=== PATIENT | male | born 1960 | race Caucasian/White ===

== ENCOUNTER 2017-07-01 19:31 | Emergency (ER) | payer MEDICARE ==
[~2017-07-01] VITALS: Ht 172.7 cm; Wt 81.6 kg
[~2017-07-01 19:31] MED LIST: ASPIR 8181 MG PO; CELEXA20 MG PO; COREG6.25 MG PO; DICYCLOMINE HCL20 MG PO; GEMFIBROZIL600 MG PO; GLIPIZIDE10 MG PO; GLIPIZIDE2.5 MG PO; JENTADUETO 2.51 EACH PO; LISINOPRIL HCTZ1 TA1 PO; LISINOPRIL10 MG PO; LOPID600 MG PO; MEDROL DOSEPAK4 MG PO; METFORMIN1000 MG PO; Motrin,Rufen800 MG PO; NAPROSYN500 MG PO; SIMVASTATIN40 MG PO; ULTRAM50 MG PO; VIBRAMYCIN100 MG PO; VICODIN 5/500 505 MG PO; VICODIN ES 7501 TAB PO; VOLTAREN75 MG PO
[2017-07-01] MEDS ORDERED: METFORMIN1000 MG PO (19:52)
[2017-07-01] MEDS ORDERED: CEPHALEXIN500 M1 PO (20:13)
== END 2017-07-01 20:51 | disposition home or self-care (01) ==
LOC: ED 19:31
DX: S91.331A Puncture wound without foreign body, right foot, initial encounter (principal); F17.200 Nicotine dependence, unspecified, uncomplicated; Z98.890 Other specified postprocedural states; Z90.89 Acquired absence of other organs; Z79.82 Long term (current) use of aspirin; Z79.899 Other long term (current) drug therapy; Z95.5 Presence of coronary angioplasty implant and graft; Z88.6 Allergy status to analgesic agent; Z88.5 Allergy status to narcotic agent; W22.8XXA Striking against or struck by other objects, initial encounter; Y93.01 Activity, walking, marching and hiking; Y92.89 Other specified places as the place of occurrence of the external cause; Y99.9 Unspecified external cause status

== ENCOUNTER 2017-07-27 16:54 | Inpatient (IN) | payer MEDICARE ==
[~2017-07-27] VITALS: Ht 172.7 cm; Wt 82.4 kg
--- NOTE | ~2017-07-27 | ST ---
[place], [place] EXERCISE STRESS TEST REPORT NAME: RODNEY STERN UNIT #: [id number] ROOM: 508 DOCTOR: MARYANN MENJIVAR MD BIRTHDATE: [birth year] DOS: 07/28/2017 REFERRING PHYSICIAN: Dr. Webb. INDICATION: Precordial chest pain. The patient underwent standard protocol Lexiscan stress EKG. The patient's baseline EKG showed sinus bradycardia with nonspecific ST-T wave changes. Baseline heart rate 52 with blood pressure 136/72. The patient's peak heart rate was 121 with blood pressure 152/58. The patient had no chest pain, no ischemic changes and no arrhythmias noted. SUMMARY OF FINDINGS: Unremarkable Lexiscan stress EKG. Please see separate dictation for perfusion scan results. MARYANN MENJIVAR MD CM:STRESS:EXERCISE STRESS TEST REPORT [id number] MARYANN MENJIVAR MD
[~2017-07-27 16:54] MED LIST changes: +CEPHALEXIN500 M1 PO
[2017-07-27 17:06] VITALS: BP 177/89
[2017-07-27 17:17] LABS: BASO # 0.1 10*3/uL (0.0-0.1); BASO % 0.5 % (0.0-1.0); EOS # 0.2 10*3/uL (0.0-0.4); HEMATOCRIT 42.1 % (42.0-52.0); HEMOGLOBIN 14.7 g/dl (14.0-18.0); LYMPH # 3.7 10*3/uL (1.3-4.4); LYMPH % 39.2 % (27.0-41.0); MEAN CELL VOLUME 89.4 fl (80.0-94.0); MEAN CORPUSCULAR HGB 31.2 pg (27.0-31.0); MEAN CORPUSCULAR HGB CONC 34.9 g/dl (33.0-37.0); MEAN PLATELET VOLUME 9.3 fl (9.6-12.3); MONO # 0.7 10*3/uL (0.1-1.0); MONO % 7.8 % (3.0-9.0); NEUT # 4.7 10*3/uL (2.3-7.9); NEUT % 50.1 % (47.0-73.0); PLATELET COUNT AUTOMATED 172 10*3/uL (130-400); RED BLOOD COUNT 4.71 10*6/uL (4.50-5.90); RED CELL DISTRI WIDTH 11.9 % (0-14.5); WHITE BLOOD COUNT 9.3 10*3/uL (4.8-10.8)
[2017-07-27 17:25] LABS: INTERNATIONAL NORM RATIO 0.9 (2.0-3.5)
[2017-07-27 17:33] LABS: ALBUMIN 4.1 gm/dl (3.1-4.5); ALKALINE PHOSPHATASE 56 U/L (45-117); BUN 18 mg/dl (7-24); CHLORIDE 95 mmol/L (98-107); CKMB 4.2 ng/ml (0.5-3.6); CPK 281 U/L (39-308); CREATININE 0.94 mg/dL (0.70-1.30); LIPASE 180 U/L (73-393); MAGNESIUM 1.9 mg/dL (1.5-2.1); POTASSIUM 4.3 mmol/L (3.5-5.1); SGOT/AST 19 IU/L (3-35); SGPT/ALT 27 U/L (12-78); SODIUM 128 mmol/L (136-145); TOTAL PROTEIN 7.8 gm/dL (6.4-8.2); TROPONIN I < 0.015 ng/ml (<0.045)
--- NOTE | 2017-07-27 17:57 | NUR ---
MINIMAL RELIEF IN CHEST PAIN AFTER SUBLIQUAL NITRO GIVEN. ALAN MASSEY
[2017-07-27 18:39] VITALS: BP 140/82
[2017-07-27 18:53] VITALS: BP 156/85
[2017-07-27 19:10] VITALS: BP 156/85
--- NOTE | 2017-07-27 19:24 | NUR ---
AWAITING BED FROM [facility]
[2017-07-27 20:00] VITALS: BP 121/67
--- NOTE | 2017-07-27 20:01 | NUR ---
DENIES SOB DIAPHORESIS OR CHEST PAIN AT PRESENT
[2017-07-27 20:25] VITALS: BP 121/67
--- NOTE | 2017-07-27 20:25 | NUR ---
A 57YR OLD MALE,admitted to 5E,under the services of KENDRA Mota DO with a diagnosis of CHEST PAIN RULE OUT NH. Chief complaint is MIDSTERNAL CHEST PAIN. Patient arrived via stretcher from ER. Monitor applied. Initial assessment completed. Vital signs taken and recorded. KENDRA MOTA DO notified of admission to the unit. Orders received. See assessment for past medical history, medications and allergies. Patient and/or family oriented to unit 5E. visitation policy reviewed. Clothing/patient valuable form completed. PEEWEE CAMARILLO
--- NOTE | 2017-07-27 20:45 | NUR ---
Medication reconciliation updated and verified with patient. Patient knew all of his medication and dosages.
--- NOTE | 2017-07-27 21:12 | NUR ---
Called and notified Dr. Paul's answering service regarding consult. They said they woould page him.
--- NOTE | 2017-07-27 21:22 | NUR ---
Called and notified Dr. Lorenzo regarding low heart rate. Dr. Lorenzo said to hold Coreg for 10 pm dose.
--- NOTE | 2017-07-27 22:15 | NUR ---
Dr. Paul called and was notified of consult. New orders were received.
[2017-07-28] VITALS: BP 107/58
--- NOTE | 2017-07-28 00:36 | NUR ---
24 HR chart check completed.
[2017-07-28 06:49] LABS: BASO # 0.1 10*3/uL (0.0-0.1); BASO % 0.8 % (0.0-1.0); EOS # 0.1 10*3/uL (0.0-0.4); HEMATOCRIT 40.9 % (42.0-52.0); HEMOGLOBIN 14.2 g/dl (14.0-18.0); LYMPH # 2.5 10*3/uL (1.3-4.4); MEAN CELL VOLUME 89.9 fl (80.0-94.0); MEAN CORPUSCULAR HGB 31.2 pg (27.0-31.0); MEAN CORPUSCULAR HGB CONC 34.7 g/dl (33.0-37.0); MEAN PLATELET VOLUME 9.6 fl (9.6-12.3); MONO # 0.6 10*3/uL (0.1-1.0); MONO % 8.6 % (3.0-9.0); NEUT # 3.8 10*3/uL (2.3-7.9); NEUT % 52.9 % (47.0-73.0); PLATELET COUNT AUTOMATED 159 10*3/uL (130-400); RED BLOOD COUNT 4.55 10*6/uL (4.50-5.90); RED CELL DISTRI WIDTH 11.9 % (0-14.5); WHITE BLOOD COUNT 7.1 10*3/uL (4.8-10.8)
[2017-07-28 07:11] LABS: ALBUMIN 3.5 gm/dl (3.1-4.5); BUN 14 mg/dl (7-24); CHLORIDE 101 mmol/L (98-107); CREATININE 0.92 mg/dL (0.70-1.30); MAGNESIUM 2.1 mg/dL (1.5-2.1); POTASSIUM 4.7 mmol/L (3.5-5.1); SGOT/AST 19 IU/L (3-35); SGPT/ALT 22 U/L (12-78); SODIUM 135 mmol/L (136-145)
[2017-07-28 07:15] LABS: CHOLESTEROL 149 mg/dL (<200); HDL CHOLESTEROL 32 mg/dl (40-60); LDL CHOLESTEROL 93 mg/dL (9-159); PHOSPHOROUS 3.9 mg/dL (2.5-4.9); TOTAL PROTEIN 6.8 gm/dL (6.4-8.2); TRIGLYCERIDES 118 mg/dl (<150); VLDL CHOLESTEROL 24 mg/dL (6-40)
[2017-07-28 07:19] LABS: ALKALINE PHOSPHATASE 46 U/L (45-117)
[2017-07-28 08:00] VITALS: BP 119/69
--- NOTE | 2017-07-28 09:20 | NUR ---
Divine Healer in to talk to patient. Patient states lives at home with . There are few steps in the home. Physician: shawn michael Pharmacy: [facility] health services: none Patient's level of ADLs: INDEPENDENT Patient has working utilities: all working DME: none Follow-up physician's appointment after d/c: will be made by hospitalist nurse director upon discharge Does patient want to access PORTAL?: no Discharge plan discussed with patient, patient lives at home with , states he is independent in adls and ambulation, drives, patient and stated he would be going back home and denies any home needs. KONRAD MEADOWS
--- NOTE | 2017-07-28 11:35 | NUR ---
PT OFF FLOOR TO CARDIAC REHAB FOR A STRESS TEST.
--- NOTE | 2017-07-28 12:45 | NUR ---
INFORMED CONSENT OBTAIN FOR LEXISCAN NUCLEAR STRESS TEST AND SWITCHED TO EXERCISE CARDIOLITE BY DR. MENJIVAR. RESTING EKG SINUS HARRISON WITH A SUPINE HR OF 52 AND HR OF 136/72 AND HR OF 51 WITH BP OF 128/68 IN STANDING POSITION. PT COMPLETED 6:57 OF A DERIAN PROTOCOL. WALKED 57 SECONDS OF STAGE III AT 3.4 MPH AND 14% GRADE AND SWITCHED TO WALKING LEXISCAN AT 1.5 MPH AND 0% GRADE BECAUSE OF FATIGUE AND SUBOPTIMAL HR OF 121 WHICH IS 75% OF PREDICTED MAX HR. RECEIVED LEXISCAN 0.4 MG IV OVER 10 SECONDS WHILE WALKING AT 1.5 MPH. HAD NO CHEST PAIN OR ANY EKG CHANGES. HAD A PEAK BP OF 152/58. LAST RECOVERY HR OF 83 WITH BP OF 132/66. AWAITING SCANNING IN STABLE CONDITION
--- NOTE | 2017-07-28 15:21 | NUR ---
DISCHARGE INFORMATION REVIEWED. HEPLOCK AND WEB PRESS OPERATOR HELPER OFFSET DISCONTINUED.
--- NOTE | 2017-07-28 15:23 | NUR ---
SPOKE WITH DR. MENJIVAR REGARDING DISCHARGE. PT IS TO FOLLOW UP IN CLINIC DOWNSTAIRS IN 1-2 WEEKS.
--- NOTE | 2017-07-28 15:33 | NUR ---
Discharge instructions reviewed with patient/family. Patient receptive and verbalizes understanding. Follow-up care arranged. Written instructions given to patient/family. LEONCIO DELCID
== END 2017-07-28 15:33 | disposition home or self-care (01) | DRG 206 ==
LOC: ED 16:54 → 5E 18:29 → EDHOLD 18:29 → 5E 19:46
PROVIDERS: Emergency Medicine; Family Medicine; ADMIT Internal Medicine
PROC: 4A02XM4 Measurement of Cardiac Total Activity, External Approach (ICD-10-PCS; principal; 2017-07-28)
PROC: 3E073KZ Introduction of Other Diagnostic Substance into Coronary Artery, Percutaneous Approach (ICD-10-PCS; principal; 2017-07-28)
DX: M94.0 Chondrocostal junction syndrome [Tietze] (principal); E87.1 Hypo-osmolality and hyponatremia; E87.8 Other disorders of electrolyte and fluid balance, not elsewhere classified; I25.2 Old myocardial infarction; F17.210 Nicotine dependence, cigarettes, uncomplicated; I25.10 Atherosclerotic heart disease of native coronary artery without angina pectoris; E78.5 Hyperlipidemia, unspecified; I10 Essential (primary) hypertension; E11.9 Type 2 diabetes mellitus without complications; R74.8 Abnormal levels of other serum enzymes; Z86.79 Personal history of other diseases of the circulatory system; Z88.6 Allergy status to analgesic agent; Z79.82 Long term (current) use of aspirin; Z79.899 Other long term (current) drug therapy; Z95.5 Presence of coronary angioplasty implant and graft

== ENCOUNTER 2018-04-25 16:13 | Emergency (ER) | payer MEDICARE ==
[~2018-04-25] VITALS: Wt 77.1 kg
== END 2018-04-25 17:44 | disposition home or self-care (01) ==
LOC: ED 16:13
DX: S63.501A Unspecified sprain of right wrist, initial encounter (principal); S40.012A Contusion of left shoulder, initial encounter; Z88.6 Allergy status to analgesic agent; Z79.82 Long term (current) use of aspirin; Z79.899 Other long term (current) drug therapy; W10.9XXA Fall (on) (from) unspecified stairs and steps, initial encounter; Y93.89 Activity, other specified; Y92.89 Other specified places as the place of occurrence of the external cause; Y99.8 Other external cause status

== ENCOUNTER 2019-09-22 11:01 | Emergency (ER) | payer MEDICARE ==
[~2019-09-22] VITALS: Ht 172.7 cm; Wt 79.4 kg
--- NOTE | ~2019-09-22 | EKG ---
[place], [place] ELECTROCARDIOGRAM REPORT NAME: RODNEY STERN UNIT #: [id number] ROOM: DOCTOR: EPIPHANY DRAFT REPORT BIRTHDATE: [birth year] [facility] Test Date: 2019-09-22 Test Time: 11:02:24 Pat Name: RODNEY STERN Department: Room: Gender: Body Component Engineer: : 1960 Requested By: SANDRA CASE Order Number: [id number] Reading MD: Gavin Mccracken MD Measurements Intervals [place] Rate: 67 P: 59 SD: 155 QRS: 84 QRSD: 115 T: 41 QT: 410 QTc: 433 Interpretive Statements Sinus rhythm Nonspecific intraventricular conduction delay Low voltage, extremity leads Electronically Signed On 09-23-2019 8:12:53 PDT by Gavin Mccracken MD CM:EKGRPT:ELECTROCARDIOGRAM REPORT [id number] SANDRA ALEMAN DRAFT REPORT SANDRA CASE M.D.
--- NOTE | ~2019-09-22 | EKG ---
[place], [place] ELECTROCARDIOGRAM REPORT NAME: RODNEY STERN UNIT #: [id number] ROOM: DOCTOR: EPIPHANY DRAFT REPORT BIRTHDATE: [birth year] [facility] Test Date: 2019-09-22 Test Time: 14:26:22 Pat Name: RODNEY STERN Department: Room: Gender: Assembly Person: : 1960 Requested By: SANDRA CASE Order Number: [id number] Reading MD: Gavin Mccracken MD Measurements Intervals [place] Rate: 65 P: 37 MA: 154 QRS: 75 QRSD: 116 T: 7 QT: 418 QTc: 435 Interpretive Statements Sinus rhythm Nonspecific intraventricular conduction delay Abnormal inferior Q waves Electronically Signed On 09-23-2019 8:13:09 PDT by Gavin Mccracken MD CM:EKGRPT:ELECTROCARDIOGRAM REPORT [id number] SANDRA ALEMAN DRAFT REPORT SANDRA CASE M.D.
[2019-09-22 11:10] LABS: BASO # 0.1 10*3/uL (0.0-0.1); BASO % 0.6 % (0.0-1.0); EOS # 0.1 10*3/uL (0.0-0.4); EOS % 1.1 % (1.0-4.0); HEMATOCRIT 41.4 % (42.0-52.0); HEMOGLOBIN 14.5 g/dl (14.0-18.0); LYMPH # 3.2 10*3/uL (1.3-4.4); LYMPH % 29.2 % (27.0-41.0); MEAN CORPUSCULAR HGB 32.2 pg (27.0-31.0); MEAN PLATELET VOLUME 9.5 fl (9.6-12.3); MONO # 0.7 10*3/uL (0.1-1.0); MONO % 6.5 % (3.0-9.0); NEUT # 6.7 10*3/uL (2.3-7.9); NEUT % 62.2 % (47.0-73.0); PLATELET COUNT AUTOMATED 205 10*3/uL (130-400); WHITE BLOOD COUNT 10.8 10*3/uL (4.8-10.8)
[2019-09-22 11:22] LABS: ACT PARTIAL THROMBO TIME 25.9 SECONDS (20.0-32.1); INTERNATIONAL NORM RATIO 0.9 (2.0-3.5)
[2019-09-22 11:29] LABS: BUN 17 mg/dl (7-24); CHLORIDE 97 mmol/L (98-107); CREATININE 1.01 mg/dL (0.70-1.30); POTASSIUM 4.6 mmol/L (3.5-5.1); SGOT/AST 22 IU/L (3-35); SGPT/ALT 29 U/L (12-78); SODIUM 129 mmol/L (136-145); TOTAL PROTEIN 7.5 gm/dL (6.4-8.2)
[2019-09-22 11:32] LABS: ALKALINE PHOSPHATASE 70 U/L (45-117)
[2019-09-22 11:33] LABS: TROPONIN I < 0.015 ng/ml (<0.045)
== END 2019-09-22 15:58 | disposition home or self-care (01) ==
LOC: ED 11:01
PROVIDERS: Emergency Medicine
DX: R07.89 Other chest pain (principal); R42 Dizziness and giddiness; R06.02 Shortness of breath; E11.9 Type 2 diabetes mellitus without complications; I25.2 Old myocardial infarction; I10 Essential (primary) hypertension; I25.10 Atherosclerotic heart disease of native coronary artery without angina pectoris; E78.5 Hyperlipidemia, unspecified; F17.210 Nicotine dependence, cigarettes, uncomplicated; Z98.61 Coronary angioplasty status; Z88.6 Allergy status to analgesic agent; Z79.899 Other long term (current) drug therapy; Z79.82 Long term (current) use of aspirin

== ENCOUNTER 2019-10-11 18:20 | Emergency (ER) | payer MEDICARE ==
[~2019-10-11] VITALS: Ht 172.7 cm; Wt 78.9 kg
[~2019-10-11 18:20] MED LIST changes: +GLUCOPHAGE1000 MG PO
[2019-10-11 18:56] LABS: BASO # 0.1 10*3/uL (0.0-0.1); BASO % 0.7 % (0.0-1.0); EOS # 0.1 10*3/uL (0.0-0.4); EOS % 1.2 % (1.0-4.0); HEMATOCRIT 39.5 % (42.0-52.0); HEMOGLOBIN 13.8 g/dl (14.0-18.0); LYMPH # 2.5 10*3/uL (1.3-4.4); LYMPH % 32.1 % (27.0-41.0); MEAN CELL VOLUME 90.2 fl (80.0-94.0); MEAN CORPUSCULAR HGB 31.5 pg (27.0-31.0); MEAN CORPUSCULAR HGB CONC 34.9 g/dl (33.0-37.0); MEAN PLATELET VOLUME 8.5 fl (9.6-12.3); MONO # 0.5 10*3/uL (0.1-1.0); MONO % 6.9 % (3.0-9.0); NEUT # 4.5 10*3/uL (2.3-7.9); NEUT % 58.8 % (47.0-73.0); PLATELET COUNT AUTOMATED 170 10*3/uL (130-400); RED BLOOD COUNT 4.38 10*6/uL (4.50-5.90); RED CELL DISTRI WIDTH 12.1 % (0-14.5); WHITE BLOOD COUNT 7.7 10*3/uL (4.8-10.8)
[2019-10-11 19:20] LABS: ALBUMIN 3.9 gm/dl (3.1-4.5); ALKALINE PHOSPHATASE 58 U/L (45-117); BUN 12 mg/dl (7-24); CHLORIDE 98 mmol/L (98-107); CREATININE 0.84 mg/dL (0.70-1.30); SGOT/AST 16 IU/L (3-35); SGPT/ALT 27 U/L (12-78); SODIUM 129 mmol/L (136-145); TOTAL PROTEIN 7.2 gm/dL (6.4-8.2)
[2019-10-11 19:27] LABS: ETHYL ALCOHOL < 3.0 mg/dl (<3)
[2019-10-11 19:56] LABS: URINE AMPHETAMINES < 1000 (1000ng/ml); URINE BARBITURATES < 200 (200ng/ml); URINE BENZODIAZEPINES < 200 (200ng/ml); URINE CANNABINOIDS (THC) < 50 (50ng/ml); URINE COCAINE < 300 (300ng/ml); URINE METHADONE < 300 (300ng/ml); URINE OPIATES < 300 (300ng/ml)
[2019-10-11 19:57] LABS: URINE PHENCYCLIDINE < 25 (25ng/ml)
[2019-10-11] MEDS ORDERED: ATIVAN0.5 MG PO (20:20)
== END 2019-10-11 20:25 | disposition home or self-care (01) ==
LOC: ED 18:20
PROVIDERS: Physician Assistant
DX: F41.9 Anxiety disorder, unspecified (principal); E11.9 Type 2 diabetes mellitus without complications; I10 Essential (primary) hypertension; I25.2 Old myocardial infarction; I25.10 Atherosclerotic heart disease of native coronary artery without angina pectoris; E78.00 Pure hypercholesterolemia, unspecified; Z88.6 Allergy status to analgesic agent; Z79.899 Other long term (current) drug therapy; Z79.82 Long term (current) use of aspirin

== ENCOUNTER 2019-10-25 22:04 | Emergency (ER) | payer MEDICARE ==
[~2019-10-25] VITALS: Ht 170.1 cm; Wt 78.0 kg
[~2019-10-25 22:04] MED LIST changes: +ATIVAN0.5 MG PO; -GLUCOPHAGE1000 MG PO
== END 2019-10-26 00:06 | disposition home or self-care (01) ==
LOC: ED 22:04
DX: S22.32XA Fracture of one rib, left side, initial encounter for closed fracture (principal); I10 Essential (primary) hypertension; E11.9 Type 2 diabetes mellitus without complications; I25.2 Old myocardial infarction; I25.10 Atherosclerotic heart disease of native coronary artery without angina pectoris; E78.00 Pure hypercholesterolemia, unspecified; F17.200 Nicotine dependence, unspecified, uncomplicated; Z79.899 Other long term (current) drug therapy; Z79.82 Long term (current) use of aspirin; Z88.6 Allergy status to analgesic agent; W10.8XXA Fall (on) (from) other stairs and steps, initial encounter; Y93.89 Activity, other specified; Y92.89 Other specified places as the place of occurrence of the external cause; Y99.8 Other external cause status

== ENCOUNTER 2019-10-31 16:08 | Inpatient (IN) | payer MEDICARE ==
[~2019-10-31] VITALS: Ht 170.1 cm; Wt 78.0 kg
[~2019-10-31 16:08] MED LIST changes: +GLUCOPHAGE1000 MG PO
[2019-10-31] MEDS ORDERED: ACTOS15 M1 PO (16:29)
[2019-10-31] MEDS ORDERED: BUPROPION75 MG PO (16:30)
[2019-10-31] MEDS ORDERED: GLUCOPHAGE500 M1 PO (16:35)
[2019-10-31] MEDS ORDERED: IMDUR SA30 MG PO (16:35)
[2019-10-31] MEDS ORDERED: REMERON15 M2 PO (16:36)
[2019-10-31] MEDS ORDERED: ZESTORETIC 20-1 EACH PO (16:37)
[2019-10-31] MEDS ORDERED: WELLBUTRIN SR150 MG PO (16:39)
[2019-10-31 20:00] VITALS: BP 130/82
--- NOTE | 2019-10-31 20:00 | NUR ---
RODNEY STERN Manuel a 59 year old M admitted via wheel chair from the EMERGENCY ROOM as a voluntary admission. Arrived on unit at 1900. ALLERGIES: PERCOCET. Vital signs are: 97.6-76-16 130/82 99% The client signed the following forms with stated understanding: Authorization For The Release of Medical Information, Clothing List, Consent to Voluntary Admission and Hospitalization, Consent and Release Forms/Receipt of Rights, Acknowledgement of Advance Directive Information, Behavioral Health Consent Form, and Informed Consent of Medications. Admitted under the services [facility]. A search was conducted and hazardous articles were removed. Client was oriented to the unit. PEEWEE CAMARILLO
[2019-10-31 20:04] VITALS: BP 130/82
--- NOTE | 2019-10-31 20:38 | NUR ---
EVENING/MUSIC/HYMNS PT JUST ADMITTED TO UNIT AND WHEELED INTO DAYROOM. PT VERY DEPRESSED OPENING UP TO THIS STAFF ABOUT WHAT BROUGHT HIM HERE. THIS STAFF ABLE TO COMPLETE ACTIVITY ASSESSMENt. PT WILL CONTINUE TO ATTEND AND PARTICIPATE IN GROUP.
--- NOTE | 2019-10-31 21:45 | NUR ---
Called and notified Dr. Anne regarding patient's admission to the floor.
--- NOTE | 2019-11-01 00:20 | NUR ---
24 HR chart check completed.
--- NOTE | 2019-11-01 02:33 | NUR ---
Called Dr. Anne regarding clarification of admission order for IV Normal Saline. Dr. Anne said his sodium level is 127 and that is why the order for IV fluids but it is not emergent and can wait until morning.
--- NOTE | 2019-11-01 05:44 | NUR ---
Patient slept approx. 7 hours throughout shift. Q 15 minute safety checks continued and maintained.
[2019-11-01 07:37] VITALS: BP 120/84
[2019-11-01 07:55] LABS: BASO # 0.1 10*3/uL (0.0-0.1); BASO % 0.7 % (0.0-1.0); EOS # 0.1 10*3/uL (0.0-0.4); HEMATOCRIT 45.1 % (42.0-52.0); HEMOGLOBIN 15.2 g/dl (14.0-18.0); LYMPH # 1.9 10*3/uL (1.3-4.4); LYMPH % 20.8 % (27.0-41.0); MEAN CELL VOLUME 92.8 fl (80.0-94.0); MEAN CORPUSCULAR HGB 31.3 pg (27.0-31.0); MEAN CORPUSCULAR HGB CONC 33.7 g/dl (33.0-37.0); MEAN PLATELET VOLUME 9.2 fl (9.6-12.3); MONO # 0.6 10*3/uL (0.1-1.0); MONO % 6.7 % (3.0-9.0); NEUT # 6.5 10*3/uL (2.3-7.9); PLATELET COUNT AUTOMATED 197 10*3/uL (130-400); RED BLOOD COUNT 4.86 10*6/uL (4.50-5.90); WHITE BLOOD COUNT 9.2 10*3/uL (4.8-10.8)
--- NOTE | 2019-11-01 08:06 | NUR ---
PT AWAKE AND ALERT. RESPS EASY AND EVEN ON ROOM AIR. AMBULATORY WITH STEADY GAIT. FED SELF BREAKFAST. NO DISTRESS NOTED. ON UNIT TO SEE PT AT THIS TIME, UPDATE GIVEN.
[2019-11-01 08:10] LABS: ALBUMIN 3.8 gm/dl (3.1-4.5); BUN 11 mg/dl (7-24); CHLORIDE 96 mmol/L (98-107); CHOLESTEROL 99 mg/dL (<200); CREATININE 0.94 mg/dL (0.70-1.30); HDL CHOLESTEROL 34 mg/dl (40-60); LDL CHOLESTEROL 44 mg/dL (9-159); PHOSPHOROUS 3.6 mg/dL (2.5-4.9); POTASSIUM 4.4 mmol/L (3.5-5.1); SGPT/ALT 28 U/L (12-78); SODIUM 130 mmol/L (136-145); TRIGLYCERIDES 105 mg/dl (<150); VLDL CHOLESTEROL 21 mg/dL (6-40)
--- NOTE | 2019-11-01 08:15 | NUR ---
Treatment Plan meeting was held this a.m. with Dr. Pierson, RN, AT, OUTBOUND SUPERVISOR-S and Senior Facilities Manager in attendance. Plan for discharge Wednesday or Wednesday. Pt. will return home at this point.
[2019-11-01 08:19] LABS: ALKALINE PHOSPHATASE 77 U/L (45-117); SGOT/AST 15 IU/L (3-35); TOTAL PROTEIN 7.5 gm/dL (6.4-8.2)
--- NOTE | 2019-11-01 10:40 | NUR ---
ON UNIT TO SEE PT AT THIS TIME. MADE AWARE PT STATES HOME DOSE OF METFORMIN IS 1,250MG TWICE DAILY. CURRENT ORDERS ARE METFORMIN 1000MG THREE TIMES DAILY AND METFORMIN 250MG TWICE DAILY. STATES HE WILL REVIEW. UPDATED WITH SODIUM OF 130 TODAY. STATES OK TO D/C IV ORDERS.
--- NOTE | 2019-11-01 11:50 | NUR ---
Individual counseling with pt this AM. Obtained pt history and current life stressors. Pt was pleasant throughout and tearful at times. Pt shared that his asked for a separation and plans on seeking a divorce. Pt does not want this and is having a difficult time accepting this. Pt is facing domestic violence charges and violation of a restraining order. Because of the marital problems, pt stated that he cannot find anything to live for and wants relief for the emotional pain that he is feeling. Pt expressed that he is embarrassed for being in the [facility] but sees this as his last hope. Validated pt's current emotions and spoke with pt about how divorce is like a . Offered to pt that he is grieving and discussed the grieving process. Discussed the difficulty in life changes especially when the changes are not wanted. Discussed reinventing oneself and the process of change. Pt voiced wanting to feel better and to find himself again. Pt recognizes that he is feeling overwhelmed and has decided that he must address one concern at a time. Encouraged pt to do this and discussed this further. Pt stated that he needs to find something that has meaning-something to live for. Discussed the power of gratitude and of exploring anything that pt is thankful for. Pt is willing to work on a gratitude journal daily. Pt admits to not wanting to live anymore but states that he is finding hope since his [facility] admission. Pt is voicing that he wants to feel better. Pt displayed a flat affect and was tearful at times. He is facing many life stressors - the likely end of his marriage, loss of his home, strained relationship with one son, financial concerns, and upcoming legal issues.
--- NOTE | 2019-11-01 12:49 | NUR ---
AM GROUP PT DID NOT ATTEND MORNING GROUP THERAPY PT WAS IN A 1:1 WITH NURSE AND SW.
--- NOTE | 2019-11-01 14:51 | NUR ---
P- DEPRESSED MOOD, ANXIETY. I- ORIENTATION, MOOD AND BEHAVIOR ASSESSED. ASSESSED PT FOR SI/HI, INTENT OR PLAN. ASSESSED PT FOR S/S HALLUCINATIONS, PARANOIA AND/OR DELUSIONS. MEDICATIONS ADMINISTERED PER PHYSICIAN'S ORDERS. ASSISTANCE WITH ADL CARE PROVIDED NEEDED. ENCOURAGED PT TO ATTEND AND PARTICIPATE IN [place] [place] GROUPS AND ACTIVITIES. R- PT IS ALERT AND ORIENTED X4. MEMORY APPEARS TO BE INTACT. RESPS EASY AND EVEN ON ROOM AIR. MOOD APPEARS DEPRESSED AND ANXIOUS. AFFECT FLAT. PT DENIES SI/HI, INTENT OR PLAN. PT CONTRACTS FOR SAFETY. PT STATES THE SUICIDAL THOUGHTS WERE BAD FOR 3 DAYS LEADING UP TO ADMISSION BUT STATES THAT SINCE HE HAS BEEN HERE, HE IS NO LONGER HAVING THESE THOUGHTS. PT STATES HE WILL COME TO STAFF IF THOUGHTS REAPPEAR. PT STATES HE IS FEELING A LITTLE BETTER. PT ADMITS TO BE SKEPTICAL AND EMBARASSED ABOUT BEING HERE ON U BUT STATES THAT SINCE HE HAS MET THE DOCTORS AND STAFF HERE HE IS FEELING ENCOURAGED AND KNOWS THAT HE CAN GET BETTER WITH HELP. PT DENIES HALLUCINATIONS, NO RESPONSE TO INTERNAL STIMULI NOTED. NO PARANOIA OR DELUSIONS NOTED. PT WITHDRAWN TO SELF, ENCOURAGED TO ATTEND AND PARTICIPATE IN GROUPS AND ACTIVITIES. NO DISTRESS NOTED. PT IS AMBULATORY WITH STEADY GAIT. INDEPENDENT WITH ADLS. P- PLAN TO CONTINUE CURRENT TREATMENT, CONTINUE TO MONITOR MOOD AND BEHAVIORS. PROVIDE APPROPRIATE REORIENTATION, REDIRECTION AND 1:1 NEEDED. CONTINUE TO ENCORUAGE MEDICATION COMPLIANCE WELL GROUP ATTENDANCE AND PARTICIPATION.
--- NOTE | 2019-11-01 15:58 | NUR ---
PM GROUP PT DID NOT ATTEND AFTERNOON GROUP THERAPY. PT WAS IN HIS ROOM RESTING.
--- NOTE | 2019-11-01 16:45 | NUR ---
BLODD SUGAR CHECKED 48 THEN REPEATED 49. STAT GLUCOSE REFLEX ORDERED AND DR. SPENCER NOTIFIED. RECHECK BLOOD SUGAR AFTER DINNER.
--- NOTE | 2019-11-01 17:30 | NUR ---
RECHECKED BLOOD SUGAR 162, PATIENT AT 100% OF DINNER. DR. SPENCER NOTIFIED AND UPDATED.
[2019-11-01 19:59] VITALS: BP 103/60
--- NOTE | 2019-11-01 22:08 | NUR ---
Patient alert and oriented x3. Mood depressed. Patient denies SI/HI,intent,or plan at this time. No signs of any hallucinations noted at this time. Patient isolative to room this evening except for snacks. Patient contracts for safety. Patient ambulating in hallway unassisted with steady gait. Patient compliant with HS medications without any difficulty. Provided 1:1 for emotional support. Plan to continue to encourage medication compliance and continue to provide emotional support and therapeutic communication. Also continue to encourage patient to contract for safety and having more interaction with staff and other patients. Q 15 minute safety checks continued and maintained. See [facility] flowsheet for further documentation.
--- NOTE | 2019-11-02 05:52 | NUR ---
Patient slept approx. 6.5 hours throughout shift. Q 15 minute safety checks continued and maintained.
[2019-11-02 07:34] VITALS: BP 113/68
--- NOTE | 2019-11-02 07:37 | NUR ---
Patient resting quietly with no c/o discomfort. Respirations easy and regular. Vital signs stable. No overt distress. GIVENS,VENKATA
--- NOTE | 2019-11-02 09:30 | NUR ---
Treatment Plan meeting was held with Dr. Pierson, RN, AT, HISTORIAN DRAMATIC ARTS-S and Developer Advocate in attendance. Plan for discharge next week with return home and Follow up care Arranged.
--- NOTE | 2019-11-02 09:42 | NUR ---
P: DEPRESSED MOOD. PT STATES HE IS FEELING BETTER BUT STILL HAS A BIT OF DEPRESSION PRESENT. I: 1:1 PROVIDED FOR THERAPEUTIC COMMUNICATION. BEHAVIORS MONITORED WITH Q15 MINUTE SAFETY CHECKS. ENCOURAGED MEDICATION COMPLIANCE. ENCOURAGED PT TO WRITE DOWN COPING SKILLS. R: NO ADVERSE BEHAVIORS NOTED. MEDICATION COMPLIANT. EDUCATED ON MEDICATIONS. P: CONTINUE TO ENCOURAGE MEDICATION COMPLIANCE AND EDUCATE WHEN APPROPRIATE. CONTINUE TO PROVIDE 1:1 FOR THERAPEUTIC COMMUNICATION. MONITOR BEHAVIORS WITH Q15 MINUTE SAFETY CHECKS. SEE [facility] FLOWSHEET FOR SPECIFIC MONITORING.
--- NOTE | 2019-11-02 11:47 | NUR ---
AM GROUP PT WAS PRESENT FOR THE START OF MORNING GROUP THERAPY AND REQUESTED TO CONTINUE WATCHING A MOVIE. PT ALSO READ THE NEWSPAPER BUT SOON LEFT THE GROUP ROOM AND DID NOT RETURN. PT DID NOT EXPRESS ANY SUICIDAL IDEATIONS WHILE IN GROUP
--- NOTE | 2019-11-02 13:40 | NUR ---
Family meeting held with pt and his sister Brandee with whom pt currently resides. Discussed pt's current status and pt's current life stressors. Brandee voiced supportive comments to pt. Pt stated that he is feeling hopeful. Discussed the process of emotional healing. Discharge plan is for pt to return to Brandee's home with follow-up at [facility].
--- NOTE | 2019-11-02 15:35 | NUR ---
Individual counseling with pt this afternoon. Pt stated that he is feeling hopeful about his future. Pt denies suicidal ideations at this time. Further discussed grieving the loss of pt's marriage. Educated pt about the stages of grief. Discussed where pt feels he is in the grieving process. Provided pt with hand-out about grieving the loss of a relationship. Requested that pt focus on "How are you doing?" which is a self-assessment tool to assist pt, with a plan to discuss this with pt tomorrow. Also discussed loneliness and anger and provided hand-out on the topic of loneliness. Pt's affect was brighter and animated. He smiled appropriately a few times during session. Pt is becoming future-oriented as he speaks of working on improving himself and overcoming his loss.
--- NOTE | 2019-11-02 15:46 | NUR ---
PM GROUP PT DID NOT ATTEND AFTERNOON GROUP THERAPY. PT WAS TALKING WITH SW BUT DID ENTER THE LAST 10 MINUTES AND SOCIALIZED WITH THIS SURGICAL TERRITORY MANAGER. PT WAS LAUGHING AND SMILING AND EXPRESSED NO SUICIDAL IDEATIONS WHILE IN GROUP.
[2019-11-02 19:43] VITALS: BP 123/70
--- NOTE | 2019-11-02 23:51 | NUR ---
P-DEPRESSED MOOD I-REDIRECTION WITH 1:1 THERAPEUTIC INTERVENTIONS. EDUCATE AND ENCOURAGE MEDICATION COMPLIANCE R-PATIENT MEDICATION COMPLIANT. PATIENT DISCUSSING WITH THIS NURSING COPING SKILLS FOR SUICIDAL IDEATIONS AMD DEPRESSED MOOD. PATIENT DENIES SUICIDAL AND HOMICIDAL IDEATIONS. PATIENT WITH NO HALLUCINATIONS OR DELUSIONS. PATIENT AMBULATING ON UNIT WITH STEADY GAIT. PATIENT PROVIDED NOURISHMENT AND FLUIDS AT HS P-CONTINUE TO ENCOURAGE MEDICATION COMPLIANCE, ENCOURAGE GROUP THERAPY WHILE AWAKE
--- NOTE | 2019-11-03 06:49 | NUR ---
PATIENT SLEPT >8 HOURS OF INTERRUPTED SLEEP THROUGHOUT SHIFT. Q 15 MINUTE CHECKS MAINTAINED
[2019-11-03 07:36] VITALS: BP 127/62
--- NOTE | 2019-11-03 07:40 | NUR ---
Patient resting quietly with no c/o discomfort. Respirations easy and regular. Vital signs stable. No overt distress. GIVENS,VENKATA
--- NOTE | 2019-11-03 08:15 | NUR ---
Treatment Plan meeting was held this a.m. with Dr. Pierson RN, TOASTER OPERATOR-S and Data Processing Mechanic. Plan for discharge Wednesday. Pt. will return home at discharge with Follow up appointments scheduled.
--- NOTE | 2019-11-03 15:10 | NUR ---
Met with pt this AM briefly and informed pt that this telegraphic typewriter repairer would meet with pt later in the day. Pt stated that he was feeling much better and smiled at this telegraphic typewriter repairer. Attempted 2 times to meet with pt this afternoon but pt has been sleeping soundly. Left additional gratitude journal pages for pt at his bedside for pt to complete over the weekend.
--- NOTE | 2019-11-03 15:41 | NUR ---
Attempted to meet with pt for a third time this afternoon but pt continues to sleep soundly. Left at his bedside reading material about disentangling from a relationship and finding purpose.
[2019-11-03 19:50] VITALS: BP 115/64
--- NOTE | 2019-11-03 20:36 | NUR ---
24 HR chart check completed.
--- NOTE | 2019-11-03 21:35 | NUR ---
P-MILDLY DEPRESSED I-PROVIDE 1:1 FOR EMOTIONAL SUPPORT & VENTILATION OF FEELINGS. ASSESS SUICIDAL FEELINGS. ADMINISTER MEDICATIONS. MONITOR SLEEP R-PT IS ALERT & ORIENTED X4. APPEARS TO BE MILDLY DEPRESSED BUT DENIES FEELING DEPRESSED & STATED THAT HE IS "FEELING BETTER. I NEED TO MOVE FORWARD. BRING IN THE POSITIVE & KICK OUT THE NEGATIVE". DENIES SUICIDAL FEELINGS. VOICED POSITIVE PLANS & OUTLOOK FOR HIS FUTURE. STATED THAT HE IS GLAD HE CAME TO THE HOSPITAL FOR HELP & DR DOBBS TOLD HIM TO SEE HOW THE WEEK END GOES & HE MAY BE DISCHARGED ON WEDNESDAY. COMPLIANT WITH MEDICATIONS & STATED THAT THEY ARE WORKING FOR HIM. INDEPENDENT & AMBULATORY. REPORTED HE HAD A BM TODAY. P-CONTINUE TO MONITOR & PROVIDE EMOTIONAL SUPPORT NEEDED.
--- NOTE | 2019-11-04 05:55 | NUR ---
PT HAS SLEPT PAST 2114
--- NOTE | 2019-11-04 06:48 | NUR ---
AM BEDSIDE GLUCOSE 147
[2019-11-04 07:40] VITALS: BP 132/67
--- NOTE | 2019-11-04 10:01 | NUR ---
P: PT MOOD REMAINS MILDLY DEPRESSED I: PROVIDE EMOTIONAL SUPPORT AND 1:1 FOR PT TO VOICE FEELINGS, ENCOURAGE MED COMPLIANCE AND PROVIDE MED EDUCATION, ENCOURAGE PT TO VOICE ANY SUICIDAL THOUGHTS TO STAFF R: PT ALERT TO PERSON, PLACE, TIME AND SITUATION. PT MED COMPLIANT WITHOUT DIFFICULTY, MED EDUCATION PROVIDED. PT CALM, MOOD REAMINS MILDLY DEPRESSED. PT INTERACTIVE WITH STAFF AND PEERS. PT GOAL DIRECTED TOWARDS DISCHARGE, STATES "IM FEELING MUCH BETTER AND I THINK I'LL BE READY TO GO HOME ON WEDNESDAY." pT VOICES HAVING A PLAN FOR WHEN HE IS DISCHARGED AND HAS ALOT TO LIVE FOR INCLUDING HIS GRANDKIDS AND GREAT GRANDKIDS. PT DENIES ANY SUICIDAL THOUGHTS STATING "IF I START TO THINK THAT WAY I KNOW I CAN TALK TO SAW OR ONE OF YOUR GUYS IF SHE ISN'T AROUND." PT AMBULATORY THROUGHOUT UNIT, GAIT STEADY. PT CONTINENT OF BOWEL AND BLADDER. PT SHOWERED THIS SHIFT. P: MONITOR PT BEHAVIORS ON Q15 MIN SAFETY CHECKS, ENCOURAGE MED COMPLIANCE AND PROVIDE MED EDUCATION, ENCOURAGE PT TO VOICE ANY SUICIDAL THOUGHTS, CONTINUE TO PROVIDE EMOTIONAL SUPPORT AND 1:1 FOR PT TO VOICE FEELINGS.
--- NOTE | 2019-11-04 10:50 | NUR ---
DR. CABALLERO ON UNIT TO ASSESS PT, UPDATE PROVIDED.
--- NOTE | 2019-11-04 11:55 | NUR ---
AM GROUP/EXERCISES/MUSIC/BRAIN GAMES PT ATTENDED AND PARTICIPATED IN ALL ACTIVITIES. PT EXPRESSED NO S.I. AT THIS TIME AND WILL CONTINUE TO ATTEND AN DPARTICIPATE IN FUTURE GROUP SESSIONS.
--- NOTE | 2019-11-04 15:44 | NUR ---
PM GROUP/CRAFTS/LEISURE PT ATTENDED AND PARTICIPATED IN ALL GROUP ACTIVITY. PT PLEASANT AND ON TASK WITH NO SUICIDAL IDEATIONS EXPRESSED AT THIS TIME. PT WILL CONTINUE TO ATTEND AN DPARTICIPATE IN GROUP SESSIONS.
[2019-11-04 19:51] VITALS: BP 142/68
--- NOTE | 2019-11-04 19:56 | NUR ---
24 HR chart check completed.
--- NOTE | 2019-11-04 21:02 | NUR ---
P-MILDLY DEPRESSED I-PROVIDE 1:1 FOR EMOTIONAL SUPPORT & VENTILATION OF FEELINGS. ASSESS SUICIDAL FEELINGS. ADMINISTER MEDICATIONS. MONITOR SLEEP R-PT IS ALERT & ORIENTED X4. APPEARS TO BE MILDLY DEPRESSED BUT DENIES FEELING DEPRESSED & CONTINUES TO STATE THAT HE IS "FEELING BETTER.". DISPLAYS A BRIGHTER AFFECT. DENIES SUICIDAL FEELINGS. VOICED POSITIVE PLANS & OUTLOOK FOR HIS FUTURE. COMPLIANT WITH MEDICATIONS & CONTINUES TO STATE SATISFACTION WITH HIS MEDICATIONS. INDEPENDENT & AMBULATORY. P-CONTINUE TO MONITOR & PROVIDE EMOTIONAL SUPPORT NEEDED.
--- NOTE | 2019-11-05 05:44 | NUR ---
PT HAS SLEPT PAST 2229.
--- NOTE | 2019-11-05 06:42 | NUR ---
AM BEDSIDE GLUCOSE IS 104
[2019-11-05 07:48] VITALS: BP 143/72
--- NOTE | 2019-11-05 09:08 | NUR ---
DR CABALLERO ON UNIT TO SEE PATIENT
--- NOTE | 2019-11-05 09:51 | NUR ---
P-ORGANIZED AND GOAL DIRECTED I-REDIRECTION WITH 1:1 THERAPEUTIC INTERVENTIONS. EDUCATE AND ENCOURAGE MEDICATION COMPLIANCE R-PATIENT MEDICATION COMPLIANT. PATIENT DISCUSSING WITH THIS NURSING COPING SKILLS FOR FOR WHEN PATIENT IS DISCHARGED TOMORROW. PATIENT DENIES SUICIDAL AND HOMICIDAL IDEATIONS. PATIENT WITH NO HALLUCINATIONS OR DELUSIONS. PATIENT AMBULATING ON UNIT WITH STEADY GAIT. PATIENT INTERACTING WITH PEERS IN DINING AREA. P-CONTINUE TO ENCOURAGE MEDICATION COMPLIANCE, ENCOURAGE GROUP THERAPY WHILE AWAKE
--- NOTE | 2019-11-05 16:13 | NUR ---
Shift chart check completed.
[2019-11-05 19:50] VITALS: BP 119/64
--- NOTE | 2019-11-05 22:25 | NUR ---
PT INTERACTIVE WITH THIS NURSE, POSITIVE OUTLOOK [id number] DISCHARGE WITH SOME NERVES ABOUT FACING "THE REAL WORLD". PT REPORTS HE HAS A LIST AND GOALS. FEELS THAT HIS TOOL BOX IS BETTER EQUIPED WITH WHAT HE IS FACING THEN WHEN HE CAME IN. REVIEW OF MEDICATIONS, PT IS AWARE OF ALL MEDICATIONS AND USES, THE IMPORTANCE OF FOLLOW UP APPOINTMENTS. PT APEARS GOAL DIRECTED WITH NO S/S OF SI/HI NOTED. HE WAS ABLE TO TALK WITH THIS NURSE WITH EMOTION IN HIS VOICE BUT NO TEARS, HE WAS ABLE TO TALK ABOUT FUTURE THINGS WITH HIS OLDEST SON AND GRANDCHILDREN/GREAT GRANDCHILDREN. AT THIS TIME PT IS RESTING IN HIS BED. CONTINUE WITH 15 MIN CHECKS
--- NOTE | 2019-11-06 05:16 | NUR ---
PT SLEPT 7+ HOURS WITH NO AWAKENINGS
--- NOTE | 2019-11-06 05:21 | NUR ---
24 HR chart check completed.
[2019-11-06 07:56] VITALS: BP 146/69
--- NOTE | 2019-11-06 08:15 | NUR ---
Treatment Plan meeting was held this a.m. with Dr. Pierson, RN, AT, LEGAL WORD PROCESSOR-S and Pet Sitting in attendance. Plan for discharge today with return home to stay with his sister. Follow up appointments scheduled with Pt. to Follow 11/09/19 with Pierce at [facility] at 11:45 a.m. The [facility] office with Schedule Pt. with Provider for Medications. Follow up with Primary Care Physisican Dr. Burgos at [facility]. 1st Available appointment scheduled for 11/30/19 at 9:45 a.m. for Hospital Follow up. Pt. Sister Provided phone number for Discharge Follow up Phone Call [phone].
[2019-11-06] MEDS ORDERED: B121000 MCG/1 IM (08:24)
[2019-11-06] MEDS ORDERED: HYDROXYZINE PAM25 M1 PO (08:24)
[2019-11-06] MEDS ORDERED: MIRTAZAPINE15 M2 PO (08:24)
[2019-11-06] MEDS ORDERED: VITAMIN D32000 UNI1 PO (08:24)
--- NOTE | 2019-11-06 08:49 | NUR ---
CALL PLACED TO HOSPITALIST CELL NUMBER [phone] , SPOKE TO , MADE AWARE PT BEING DISCHARGED TODAY, PT'S SISTER IS PICKING UP THIS MORNING. REQUESTED MEDICAL MEDICATIONS BE RECONCILED FOR DISCHARGE.
--- NOTE | 2019-11-06 10:05 | NUR ---
PATIENT READY FOR DISCHARGE, SISTER PRESENT, ALL DISCHARGE INSTRUCTIONS REVIEW AND SIGNED. ALL BELONGING SIGNED AND SENT WITH PATEINT. PATIENT ASSISTED TO WHEELCHAIR AND OFF UNIT WITH STAFF WITH INSTRUCTION ON UNIT TO PRIVATE VEHICLE.
--- NOTE | 2019-11-06 10:27 | NUR ---
Met with pt prior to his discharge this AM. Pt reports that he is feeling much better and ready for discharge. Pt denies any thoughts of suicide. He is future-oriented as he spoke of making plans to be with his sister and her family in [place] for [place]. Provided pt with information about local divorce support groups and [facility] groups. Pt voiced that he is very interested in attending one of these groups. Pt also stated that maybe in the future he might like to lead a group. Pt displayed a full affect and was appropriate in conversation, smiling at times. Pt voiced that he now has hope for his future and that he realizes that he will be okay.
--- NOTE | 2019-11-06 10:30 | NUR ---
Pt discharged today to his sister Brandee's home. Follow-up was scheduled at [facility] office with Pierce HOGAN for psychiatry and Cheri Rueda PhD for counseling. While at [facility], pt's mood did improve. Pt's suicidal ideations resolved. By discharge, pt was future-oriented and voicing hope for his future. Pt did not participate in the group programming but did receive individual counseling.
--- NOTE | 2019-11-06 11:58 | NUR ---
Discharge Paperwork Faxed to [facility] behavioral Health and Dr. Burgos.
== END 2019-11-06 10:05 | disposition home or self-care (01) | DRG 885 ==
LOC: 3N 16:08
PROVIDERS: Student in an Organized Health Care Education/Training Program; ADMIT Psychiatry & Neurology Psychiatry
DX: F33.2 Major depressive disorder, recurrent severe without psychotic features (principal); E87.1 Hypo-osmolality and hyponatremia; R45.851 Suicidal ideations; I10 Essential (primary) hypertension; E11.9 Type 2 diabetes mellitus without complications; E78.5 Hyperlipidemia, unspecified; F41.9 Anxiety disorder, unspecified; F17.210 Nicotine dependence, cigarettes, uncomplicated; I25.10 Atherosclerotic heart disease of native coronary artery without angina pectoris; M94.0 Chondrocostal junction syndrome [Tietze]; Z71.6 Tobacco abuse counseling; I25.2 Old myocardial infarction; Z88.6 Allergy status to analgesic agent; Z95.5 Presence of coronary angioplasty implant and graft; Z79.82 Long term (current) use of aspirin; Z79.899 Other long term (current) drug therapy

== ENCOUNTER 2020-08-20 18:51 | Emergency (ER) | payer MEDICARE ==
[~2020-08-20] VITALS: Ht 172.7 cm; Wt 75.7 kg
[~2020-08-20 18:51] MED LIST changes: +ACTOS15 M1 PO; +B121000 MCG/1 IM; +BUPROPION75 MG PO; +GLUCOPHAGE500 M1 PO; +HYDROXYZINE PAM25 M1 PO; +IMDUR SA30 MG PO; +MIRTAZAPINE15 M2 PO; +REMERON15 M2 PO; +VITAMIN D32000 UNI1 PO; +WELLBUTRIN SR150 MG PO; +ZESTORETIC 20-1 EACH PO
== END 2020-08-20 22:39 | disposition home or self-care (01) ==
LOC: ED 18:51
DX: S92.141A Displaced dome fracture of right talus, initial encounter for closed fracture (principal); I25.10 Atherosclerotic heart disease of native coronary artery without angina pectoris; E11.9 Type 2 diabetes mellitus without complications; I10 Essential (primary) hypertension; I25.2 Old myocardial infarction; E78.5 Hyperlipidemia, unspecified; F41.9 Anxiety disorder, unspecified; E78.00 Pure hypercholesterolemia, unspecified; F17.200 Nicotine dependence, unspecified, uncomplicated; Z88.8 Allergy status to other drugs, medicaments and biological substances; Z79.899 Other long term (current) drug therapy; Z79.82 Long term (current) use of aspirin; Z79.84 Long term (current) use of oral hypoglycemic drugs; X50.1XXA Overexertion from prolonged static or awkward postures, initial encounter; Y93.89 Activity, other specified; Y92.89 Other specified places as the place of occurrence of the external cause; Y99.8 Other external cause status

== ENCOUNTER → 2022-08-17 | Outpatient (CLI) | payer MEDICARE, MEDICAID | END | disposition home or self-care (01) | LOC: RAD 08:50 | PROVIDERS: ATTEND Internal Medicine | DX: M85.812 Other specified disorders of bone density and structure, left shoulder (principal); M85.811 Other specified disorders of bone density and structure, right shoulder ==

== ENCOUNTER 2024-12-07 13:53 | Observation (INO) | payer MEDICARE, MEDICAID ==
[~2024-12-07] VITALS: Ht 172.7 cm; Wt 72.6 kg
[~2024-12-07 13:53] MED LIST changes: +GLIPIZIDE XL2.5 M1 PO; -GLIPIZIDE10 MG PO; -GLUCOPHAGE1000 MG PO; +GLUCOPHAGE500 MG PO
[2024-12-07 14:05] VITALS: BP 148/76
[2024-12-07] MEDS ORDERED: FARXIGA10 M1 PO (14:18)
[2024-12-07] MEDS ORDERED: ASPIRIN, CHEWABLE 81 MG TAB PO ONE (14:35)
[2024-12-07 14:36] LABS: BASO % 0.6 % (0.0-1.0); EOS # 0.1 10*3/uL (0.0-0.4); EOS % 1.5 % (1.0-4.0); HEMATOCRIT 44.5 % (42.0-52.0); MEAN CELL VOLUME 92.9 fl (80.0-94.0); MEAN CORPUSCULAR HGB 30.7 pg (27.0-31.0); MEAN PLATELET VOLUME 9.5 fl (9.6-12.3); MONO # 0.5 10*3/uL (0.1-1.0); MONO % 8.1 % (3.0-9.0); NEUT # 3.6 10*3/uL (2.3-7.9); NEUT % 53.2 % (47.0-73.0); PLATELET COUNT AUTOMATED 146 10*3/uL (130-400); RED BLOOD COUNT 4.79 10*6/uL (4.50-5.90); WHITE BLOOD COUNT 6.7 10*3/uL (4.8-10.8)
[2024-12-07] MEDS ORDERED: NITROGLYCERIN 0.4 MG BOT SL PRN ×2 (14:40)
[2024-12-07 14:45] LABS: ACT PARTIAL THROMBO TIME 27.3 SECONDS (20.0-32.1)
[2024-12-07 15:00] LABS: ALKALINE PHOSPHATASE 49 U/L (46-116); BUN 24 mg/dl (9-23); CHLORIDE 108 mmol/L (98-107); LIPASE 47 U/L (12-53); POTASSIUM 4.2 mmol/L (3.4-5.1); SGPT/ALT 16 U/L (5-49); TOTAL PROTEIN 6.9 gm/dL (6.0-8.0)
[2024-12-07] MEDS ORDERED: Ondansetron Hydrochloride 4 MG/2 ML VIAL IV PRN (16:40)
[2024-12-07] MEDS ORDERED: ACETAMINOPHEN 325 MG TAB PO PRN (16:40)
[2024-12-07] MEDS ORDERED: TEMAZEPAM 15 MG CAP PO PRN (16:40)
[2024-12-07] MEDS ORDERED: BISACODYL 5 MG TAB PO PRN (16:40)
[2024-12-07] MEDS ORDERED: DEXTROSE 10 % IN WATER 250 ML IV PRN (17:10)
[2024-12-07] MEDS ORDERED: Technetium Tc 99M Tetrofosmi 0.23 MG KIT IJ SCH (17:30)
[2024-12-07 18:21] VITALS: BP 121/53
[2024-12-07 18:43] VITALS: BP 150/78
[2024-12-07 20:00] VITALS: BP 115/58
[2024-12-07] MEDS ORDERED: METFORMIN HYD1000 MG PO (21:22)
[2024-12-07] MEDS ORDERED: PIOGLITAZONE HC15 MG PO (21:23)
[2024-12-07] MEDS ORDERED: ATORVASTATIN CA40 M1 PO (21:25)
[2024-12-07] MEDS ORDERED: INSULIN LISPRO 1 UNIT/0.01 ML SQ SCH (22:00)
[2024-12-08] VITALS: BP 118/70
[2024-12-08 05:44] LABS: BUN 20 mg/dl (9-23); CHLORIDE 109 mmol/L (98-107); CHOLESTEROL 124 mg/dL (<200); FREE T4 1.19 ng/dl (0.89-1.76); LDL CHOLESTEROL 62 mg/dL (9-159); POTASSIUM 4.7 mmol/L (3.4-5.1); TRIGLYCERIDES 141 mg/dl (<150)
[2024-12-08 05:54] LABS: VITAMIN D, 25-HYDROXY 34.5 ng/mL (30-100)
[2024-12-08 06:11] LABS: BASO # 0.1 10*3/uL (0.0-0.1); EOS # 0.1 10*3/uL (0.0-0.4); EOS % 1.3 % (1.0-4.0); HEMATOCRIT 45.9 % (42.0-52.0); MEAN CELL VOLUME 91.8 fl (80.0-94.0); MEAN CORPUSCULAR HGB 30.6 pg (27.0-31.0); MEAN CORPUSCULAR HGB CONC 33.3 g/dl (33.0-37.0); MEAN PLATELET VOLUME 9.9 fl (9.6-12.3); MONO # 0.4 10*3/uL (0.1-1.0); MONO % 8.4 % (3.0-9.0); NEUT # 2.8 10*3/uL (2.3-7.9); PLATELET COUNT AUTOMATED 132 10*3/uL (130-400); RED CELL DISTRI WIDTH 13.2 % (0-14.5); WHITE BLOOD COUNT 5.2 10*3/uL (4.8-10.8)
[2024-12-08] MEDS ORDERED: Regadenoson 0.4 MG/5 ML SYR IV ONE (06:47)
[2024-12-08] MEDS ORDERED: ATORVASTATIN CALCIUM 80 MG TAB PO SCH (10:00)
[2024-12-08] MEDS ORDERED: ASPIRIN ENTERIC COATED 81 MG TAB PO SCH (10:00)
[2024-12-08] MEDS ORDERED: Enoxaparin Sodium 40 MG/0.4 ML SYR SC SCH (10:00)
[2024-12-08 12:00] VITALS: BP 123/62
== END 2024-12-08 16:29 | disposition home or self-care (01) ==
LOC: ED 13:53 → EDHOLD 15:47 → 4E 15:47
PROVIDERS: Emergency Medicine; Student in an Organized Health Care Education/Training Program; ADMIT Internal Medicine; ATTEND Internal Medicine
DX: R07.89 Other chest pain (principal); E87.8 Other disorders of electrolyte and fluid balance, not elsewhere classified; R06.02 Shortness of breath; E11.69 Type 2 diabetes mellitus with other specified complication; I25.119 Atherosclerotic heart disease of native coronary artery with unspecified angina pectoris; E11.65 Type 2 diabetes mellitus with hyperglycemia; R00.1 Bradycardia, unspecified; E78.5 Hyperlipidemia, unspecified; F17.210 Nicotine dependence, cigarettes, uncomplicated; F41.9 Anxiety disorder, unspecified; Z95.5 Presence of coronary angioplasty implant and graft; Z79.82 Long term (current) use of aspirin; Z79.4 Long term (current) use of insulin; Z79.899 Other long term (current) drug therapy

== ENCOUNTER → 2024-12-13 | Outpatient (CLI) | payer MEDICARE, MEDICAID ==
[~2024-12-13] MED LIST changes: +ATORVASTATIN CA40 M1 PO; +FARXIGA10 M1 PO; +METFORMIN HYD1000 MG PO; +PIOGLITAZONE HC15 MG PO
== END | disposition home or self-care (01) ==
LOC: RAD 12:24
PROVIDERS: ATTEND Nurse Practitioner Family
DX: M25.512 Pain in left shoulder (principal)

== ENCOUNTER → 2025-07-19 | Outpatient (CLI) | payer MEDICARE, MEDICAID | END | disposition home or self-care (01) | LOC: MRI 01:32 | PROVIDERS: ATTEND Orthopaedic Surgery | DX: M25.412 Effusion, left shoulder (principal); M67.814 Other specified disorders of tendon, left shoulder; M25.512 Pain in left shoulder ==